=== PATIENT | female | born 1945 | race Two or more races ===

== ENCOUNTER 2017-03-05 13:57 | Outpatient (CLI) | payer MEDICARE, OTHER ==
[~2017-03-05 13:57] MED LIST: ALIGN4 M1 PO; ALLEGRA ALLERGY60 M1 PO; BYSTOLIC10 MG ORAL; CARAFATE1 G1 ORAL; CARAFATE1 GM/10 M1 ORAL; DEXILANT60 MG ORAL; FEXOFENADINE HC60 MG ORAL; GLEEVEC100 MG ORAL; LINZESS145 MCG PO; RANITIDINE HCL150 MG ORAL; SINGULAIR10 MG ORAL; XIFAXAN550 MG ORAL; ZETIA10 MG ORAL; ZOFRAN4 M1 ORAL; ZYRTEC10 MG ORAL
[2017-03-05 14:08] VITALS: BP 119/60
--- NOTE | 2017-03-05 15:26 | GI Progress Note ---
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 Calderon. Assessment/Plan will schedule EGD/colonoscopy for patient, we will contact daughter. cont dexilant recommend Align rx xifaxin Subjective Subjective here for check up history of GIST needs colonoscopy Objective Last 24 Hour Vital Signs Date Time Temp Pulse Resp B/P Pulse Ox O2 Delivery O2 Flow Rate FiO2 03/05/17 14:08 97.9 69 16 119/60 General Appearance: no apparent distress, alert Cardiovascular: normal rate Respiratory/Chest: normal breath sounds, no respiratory distress, no accessory muscle use Abdominal Exam: normal bowel sounds, non tender, soft Extremities: normal range of motion Shasha Ac N.PWilliam Mar 05, 2017 15:26
== END 2017-03-05 14:30 | disposition home or self-care (01) ==
LOC: PAN 13:57
DX: K21.9 Gastro-esophageal reflux disease without esophagitis (principal); R10.9 Unspecified abdominal pain; K59.00 Constipation, unspecified; C49.9 Malignant neoplasm of connective and soft tissue, unspecified
CPT/HCPCS: 99211

== ENCOUNTER 2017-09-24 13:45 | Outpatient (CLI) | payer MEDICARE, OTHER ==
--- NOTE | 2017-09-24 14:40 | GI Progress Note ---
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 Calderon. Assessment/Plan Zofran prn bland diet obtain CT from [facility] RTC prn Subjective Subjective denies any GI symptoms had recent admission to [facility] ED for N/V CT showed ?jejunitis Objective T 98 BP 134/66 P 71 96 RA General Appearance: WD/WN, no apparent distress, alert Cardiovascular: normal rate Respiratory/Chest: normal breath sounds, no respiratory distress Abdominal Exam: normal bowel sounds, non tender, soft Extremities: normal range of motion, non-tender Shasha Ac N.P. Sep 24, 2017 14:40
== END 2017-09-24 14:20 | disposition home or self-care (01) ==
LOC: PAN 13:45
DX: C49.9 Malignant neoplasm of connective and soft tissue, unspecified (principal); R10.9 Unspecified abdominal pain; R11.0 Nausea
CPT/HCPCS: 99212

== ENCOUNTER 2017-11-01 13:05 | Outpatient (CLI) | payer MEDICARE, OTHER ==
--- NOTE | 2017-11-01 16:40 | GI Progress Note ---
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 Calderon. Assessment/Plan CT AP 10/07/17 reviewed. c/o of abdominal pain, better with eating no wt loss cont dexilant add carafate BID RTC prn Subjective Gastrointestinal/Abdominal: Reports: nausea Subjective here for check up, was given zofran on last admission Objective T 98.3 BP 149/71 P 75 94 RA Denies any unintentional weight loss or changes in dietary habits. General Appearance: WD/WN, no apparent distress, alert Cardiovascular: normal rate Respiratory/Chest: normal breath sounds, no respiratory distress Abdominal Exam: normal bowel sounds, non tender, soft Extremities: normal range of motion, non-tender Shasha Ac N.P. Nov 01, 2017 16:40
== END 2017-11-01 13:38 | disposition home or self-care (01) ==
LOC: PAN 13:05
DX: C49.9 Malignant neoplasm of connective and soft tissue, unspecified (principal); R11.0 Nausea; R10.9 Unspecified abdominal pain; K21.9 Gastro-esophageal reflux disease without esophagitis
CPT/HCPCS: 99212

== ENCOUNTER 2018-02-18 13:51 | Outpatient (CLI) | payer MEDICARE, OTHER ==
[2018-02-18 14:02] VITALS: BP 137/76
--- NOTE | 2018-02-18 15:03 | GI Progress Note ---
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 Calderon. Assessment/Plan Last colonoscopy 2016 >> gastritis refill dexilant VSL #3 RTC prn The patient was seen and examined at bedside and all new and available data was reviewed in the patients chart. I agree with the above findings, impression and plan. (Patient seen earlier today. Signature stamp does not reflect patient encounter time.). - Juan Antonio Calderon MD Subjective Gastrointestinal/Abdominal: Reports: no symptoms Objective T 98.23 BP 137/76 P 69 95 RA General Appearance: WD/WN, no apparent distress, alert Cardiovascular: normal rate Respiratory/Chest: normal breath sounds, no respiratory distress Abdominal Exam: normal bowel sounds, non tender, soft Extremities: normal range of motion, non-tender Marianela Ac [employer] Feb 18, 2018 15:03
== END 2018-02-18 14:25 | disposition home or self-care (01) ==
LOC: PAN 13:51
DX: K21.9 Gastro-esophageal reflux disease without esophagitis (principal); C49.9 Malignant neoplasm of connective and soft tissue, unspecified; R10.9 Unspecified abdominal pain
CPT/HCPCS: 99212

== ENCOUNTER 2018-04-03 12:58 | Outpatient (CLI) | payer MEDICARE, OTHER ==
[2018-04-03 13:11] VITALS: BP 108/61
--- NOTE | 2018-04-03 13:38 | GI Progress Note ---
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 Calderon. Assessment/Plan possible diverticular bleed labs drawn today >> CBC, BMP, Iron panel RTC after lab results The patient was seen and examined at bedside and all new and available data was reviewed in the patients chart. I agree with the above findings, impression and plan. (Patient seen earlier today. Signature stamp does not reflect patient encounter time.). - Juan Antonio Calderon MD Subjective Subjective rectal bleeding 4 days ago rectal pain increased generalized weakness Objective Last 24 Hour Vital Signs Date Time Temp Pulse Resp B/P (MAP) Pulse Ox O2 Delivery O2 Flow Rate FiO2 04/03/18 13:11 98.3 75 18 108/61 95 98.3 General Appearance: WD/WN, no apparent distress, alert Cardiovascular: normal rate Respiratory/Chest: normal breath sounds, no respiratory distress Abdominal Exam: normal bowel sounds, non tender, soft Extremities: normal range of motion, non-tender Marianela Ac [employer] SPECIAL[employer] Apr 03, 2018 13:38
[2018-04-03 14:54] LABS: BASOPHILS % (AUTO) 0.6 % (0.0-2.0); EOSINOPHILS % (AUTO) 1.3 % (0.0-3.0); HEMATOCRIT 30.7 % (37.0-47.0); HEMOGLOBIN 10.2 G/DL (12.0-16.0); LYMPHOCYTES % (AUTO) 27.4 % (20.0-45.0); MEAN CORPUSCULAR VOLUME 95 FL (80-99); MONOCYTES % (AUTO) 9.7 % (1.0-10.0); PLATELET COUNT 191 K/UL (150-450); RED BLOOD COUNT 3.24 M/UL (4.20-5.40); RED CELL DISTRIBUTION WIDTH 11.4 % (11.6-14.8); WHITE BLOOD COUNT 3.6 K/UL (4.8-10.8)
[2018-04-03 15:04] LABS: % IRON SATURATION 13 % (15-50); IRON 39 ug/dL (50-175); TOTAL IRON BINDING CAPACITY 291 ug/dL (250-450)
[2018-04-03 15:06] LABS: ALANINE AMINOTRANSFERASE 49 U/L (12-78); ALBUMIN 3.7 G/DL (3.4-5.0); ALBUMIN/GLOBULIN RATIO 1.4 (1.0-2.7); ALKALINE PHOSPHATASE 91 U/L (46-116); ANION GAP 6 mmol/L (5-15); ASPARTATE AMINO TRANSFERASE 28 U/L (15-37); BILIRUBIN,TOTAL 0.3 MG/DL (0.2-1.0); BLOOD UREA NITROGEN 22 mg/dL (7-18); CALCIUM 8.9 MG/DL (8.5-10.1); CARBON DIOXIDE 29 MMOL/L (21-32); CHLORIDE 105 MMOL/L (98-107); CREATININE 0.6 MG/DL (0.55-1.30); POTASSIUM 3.6 MMOL/L (3.5-5.1); SODIUM 139 MMOL/L (136-145)
== END 2018-04-03 13:30 | disposition home or self-care (01) ==
LOC: PAN 12:58
DX: R10.9 Unspecified abdominal pain (principal); K64.9 Unspecified hemorrhoids; K57.30 Diverticulosis of large intestine without perforation or abscess without bleeding; C49.9 Malignant neoplasm of connective and soft tissue, unspecified; R53.1 Weakness
CPT/HCPCS: 36415; 80053; 83540; 83550; 85025; G0463; 99213

== ENCOUNTER 2019-04-24 13:33 | Outpatient (CLI) | payer MEDICARE, OTHER ==
--- NOTE | 2019-04-24 14:55 | General Progress Note ---
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, malignant SNOMED: 395695181 (2) Hemorrhoids ICD Codes: K64.9 - Hemorrhoids SNOMED: 46632192 (3) Diverticula of colon ICD Codes: K57.30 - Diverticula of colon SNOMED: 161720726 (4) Abdominal pain ICD Codes: R10.9 - Abdominal pain SNOMED: 49590521 (5) GERD (gastroesophageal reflux disease) ICD Codes: K21.9 - GERD (gastroesophageal reflux disease) SNOMED: 074656504 (6) Nausea ICD Codes: R11.0 - Nausea SNOMED: 557613552 (7) Constipation ICD Codes: K59.00 - Constipation SNOMED: 62200527 (8) HTN (hypertension) ICD Codes: I10 - HTN (hypertension) SNOMED: 46024532 Assessment/Plan: Xifaxan trulance RTC prn Subjective ROS Limited/Unobtainable: Yes Allergies: Coded Allergies: No Known Allergies (Unverified , 10/28/13) Objective General Appearance: alert EENT: normal ENT inspection Neck: supple Cardiovascular: normal rate Respiratory/Chest: decreased breath sounds Abdomen: normal bowel sounds, non tender, soft Extremities: non-tender Juan Antonio Calderon MD Apr 24, 2019 14:55
[2019-04-24 14:58] VITALS: BP 131/71
== END 2019-04-24 15:33 | disposition home or self-care (01) ==
LOC: PAN 13:33
DX: K64.9 Unspecified hemorrhoids (principal); C49.9 Malignant neoplasm of connective and soft tissue, unspecified; K57.30 Diverticulosis of large intestine without perforation or abscess without bleeding; R10.9 Unspecified abdominal pain; K21.9 Gastro-esophageal reflux disease without esophagitis; R11.0 Nausea; K59.00 Constipation, unspecified; I10 Essential (primary) hypertension
CPT/HCPCS: 99212

== ENCOUNTER 2019-09-23 10:13 | Outpatient (CLI) | payer MEDICARE, OTHER ==
--- NOTE | 2019-09-23 10:52 | General Progress Note ---
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, malignant SNOMED: 590665210 (2) Hemorrhoids ICD Codes: K64.9 - Hemorrhoids SNOMED: 54818907 (3) Diverticula of colon ICD Codes: K57.30 - Diverticula of colon SNOMED: 156570020 (4) Abdominal pain ICD Codes: R10.9 - Abdominal pain SNOMED: 39314745 (5) GERD (gastroesophageal reflux disease) ICD Codes: K21.9 - GERD (gastroesophageal reflux disease) SNOMED: 768870546 (6) Nausea ICD Codes: R11.0 - Nausea SNOMED: 538624195 (7) Constipation ICD Codes: K59.00 - Constipation SNOMED: 16377209 (8) HTN (hypertension) Assessment/Plan: Xifaxan pepcid Dexillant baclofen carafate RTC 2-3 weeks Subjective ROS Limited/Unobtainable: Yes Allergies: Coded Allergies: No Known Allergies (Unverified , 10/28/13) Objective General Appearance: alert EENT: normal ENT inspection Neck: supple Cardiovascular: normal rate Respiratory/Chest: lungs clear Abdomen: normal bowel sounds, non tender, soft Extremities: non-tender Juan Antonio Calderon MD Sep 23, 2019 10:52
[2019-09-23 12:17] VITALS: BP 122/84
== END 2019-09-23 12:13 | disposition home or self-care (01) ==
LOC: PAN 10:13
DX: K57.30 Diverticulosis of large intestine without perforation or abscess without bleeding (principal); C49.9 Malignant neoplasm of connective and soft tissue, unspecified; K64.9 Unspecified hemorrhoids; R10.9 Unspecified abdominal pain; K21.9 Gastro-esophageal reflux disease without esophagitis; R11.0 Nausea; K59.00 Constipation, unspecified; I10 Essential (primary) hypertension
CPT/HCPCS: 99212